=== PATIENT | female | born 1980 | race African-American/Black ===

== ENCOUNTER 2016-11-15 00:28 | Emergency (ER) | payer MEDICAID ==
[~2016-11-15] VITALS: Ht 160 cm; Wt 53.0 kg
[2016-11-15] MEDS ORDERED: TETANUS, DIPHTHERIA, PERTUSSIS VAC/PF 0.5ML (>7YR OLD) IM ONE (04:45)
[2016-11-15 04:54] LABS: CLARITY URINE CLEAR (CLEAR); COLOR URINE YELLOW (YELLOW); GLUCOSE URINE NEGATIVE (NEGATIVE); KETONES URINE NEGATIVE (NEGATIVE); LEUKOCYTE ESTERASE URINE NEGATIVE (NEGATIVE); NITRITE URINE NEGATIVE (NEGATIVE); OCCULT BLOOD URINE NEGATIVE (NEGATIVE); PH URINE 5.5 (4.5-8.0); PROTEIN URINE NEGATIVE (NEGATIVE); SPECIFIC GRAVITY URINE 1.019 (1.005-1.030); UROBILINOGEN URINE 0.2 E.U./dL (0.2-1.0)
[2016-11-15] MEDS ORDERED: LIDOCAINE HCL 1% 20ML VIAL (Pyxis) INJ INFIL ONE (05:15)
[2016-11-15] MEDS ORDERED: CEFTRIAXONE 1 G PREMIX 50 ML IV ONE (05:15)
[2016-11-15 05:33] LABS: BASOPHILS % 0.5 % (0.0-2.0); EOSINOPHILS % 1.3 % (0.0-5.0); HEMATOCRIT. 40.6 % (36.0-48.0); HEMOGLOBIN. 13.5 g/dL (12.0-16.0); LYMPHOCYTES % 38.6 % (20.0-50.0); MEAN CORPUSCULAR HEMOGLOBIN 30.2 pg (28.0-32.0); MEAN CORPUSCULAR VOLUME 90.9 fL (81.0-99.0); MEAN PLATELET VOLUME 8.8 fl (7.4-10.4); MONOCYTES % 8.2 % (2.0-8.0); NEUTROPHILS % 51.4 % (40.0-76.0); PLATELET 309 x1000/uL (130-400); RED BLOOD CELL COUNT 4.47 mill/uL (4.2-5.4); RED CELL DISTRIBUTION WIDTH 13.6 % (11.6-14.6)
[2016-11-15 05:45] VITALS: BP 135/100
[2016-11-15 05:46] LABS: CARBON DIOXIDE 27 mEq/L (21-32); CHLORIDE 106 mEq/L (98-107)
== END 2016-11-15 07:19 | disposition home or self-care (01) ==
LOC: ER 04:49
DX: S91.151A Open bite of right great toe without damage to nail, initial encounter (principal); S41.151A Open bite of right upper arm, initial encounter; K27.9 Peptic ulcer, site unspecified, unspecified as acute or chronic, without hemorrhage or perforation; W50.3XXA Accidental bite by another person, initial encounter; Y93.89 Activity, other specified; Y92.89 Other specified places as the place of occurrence of the external cause; Y99.8 Other external cause status
CPT/HCPCS: 36415; 80053; 81003; 81025; 85025; 87186; 87210; 90471; 90715; 96365; 99284; J0696; Z7610

== ENCOUNTER 2017-07-15 02:44 | Emergency (ER) | payer MEDICAID | END 2017-07-15 02:50 | disposition left against medical advice (07) | LOC: ER 02:44 | DX: J02.9 Acute pharyngitis, unspecified (principal); Z53.21 Procedure and treatment not carried out due to patient leaving prior to being seen by health care provider ==

== ENCOUNTER 2017-08-09 02:38 | Emergency (ER) | payer MEDICAID ==
[~2017-08-09] VITALS: Ht 160 cm; Wt 52.3 kg
[2017-08-09] MEDS ORDERED: IBUPROFEN 600MG TABLET PO ONE (05:30)
[2017-08-09 07:28] VITALS: BP 135/91
== END 2017-08-09 07:34 | disposition home or self-care (01) ==
LOC: ER 02:38
DX: S40.022A Contusion of left upper arm, initial encounter (principal); S40.021A Contusion of right upper arm, initial encounter; M79.1 Myalgia; Y08.89XA Assault by other specified means, initial encounter; R05 Cough; Y93.89 Activity, other specified; Y92.89 Other specified places as the place of occurrence of the external cause; Y99.8 Other external cause status; Z98.51 Tubal ligation status
CPT/HCPCS: 81025; 99283

== ENCOUNTER 2018-02-20 04:27 | Emergency (ER) | payer MEDICAID ==
[~2018-02-20] VITALS: Ht 160 cm; Wt 52.4 kg
[2018-02-20 04:55] VITALS: BP 138/90
== END 2018-02-20 05:50 | disposition left against medical advice (07) ==
LOC: ER 04:27
DX: M79.644 Pain in right finger(s) (principal); Z53.21 Procedure and treatment not carried out due to patient leaving prior to being seen by health care provider

== ENCOUNTER 2018-07-11 23:13 | Emergency (ER) | payer MEDICAID | END 2018-07-12 01:06 | disposition left against medical advice (07) | LOC: ER 23:13 | DX: M54.2 Cervicalgia (principal); Z53.21 Procedure and treatment not carried out due to patient leaving prior to being seen by health care provider ==

== ENCOUNTER 2018-12-16 01:01 | Emergency (ER) | payer MEDICAID ==
[~2018-12-16] VITALS: Ht 160 cm; Wt 51.5 kg
[2018-12-16] MEDS ORDERED: AZITHROMYCIN 500 MG TABLET PO STA (02:54)
[2018-12-16] MEDS ORDERED: CEFTRIAXONE SODIUM 250 MG/VIAL IM ONE (03:00)
[2018-12-16] MEDS ORDERED: ACETAMINOPHEN 325MG TABLET PO ONE (04:30)
[2018-12-16 05:07] VITALS: BP 128/76
[2018-12-18 04:13] LABS: CHLAMYDIA TRACHOMATIS NAA Negative (Negative); NEISSERIA GONORRHOEAE NAA Negative (Negative)
== END 2018-12-16 05:08 | disposition home or self-care (01) ==
LOC: ER 01:01
DX: N76.0 Acute vaginitis (principal); Z98.51 Tubal ligation status
CPT/HCPCS: 87210; 87491; 87591; 96372; 99283; J0696

== ENCOUNTER 2019-09-04 08:41 | Emergency (ER) | payer MEDICAID ==
[~2019-09-04] VITALS: Ht 160 cm; Wt 54.2 kg
[2019-09-04 10:29] LABS: BASOPHILS % 0.6 % (0.0-2.0); EOSINOPHILS % 0.9 % (0.0-5.0); HEMATOCRIT. 46.8 % (36.0-48.0); HEMOGLOBIN. 15.6 g/dL (12.0-16.0); LYMPHOCYTES % 20.5 % (20.0-50.0); MEAN CORPUSCULAR HEMOGLOBIN 31.4 pg (28.0-32.0); MEAN PLATELET VOLUME 8.7 fl (7.4-10.4); MONOCYTES % 8.9 % (2.0-8.0); NEUTROPHILS % 69.1 % (40.0-76.0); PLATELET 391 x1000/uL (130-400); RED BLOOD CELL COUNT 4.98 mill/uL (4.2-5.4); RED CELL DISTRIBUTION WIDTH 13.3 % (11.6-14.6)
[2019-09-04 10:36] LABS: CHLORIDE 108 mEq/L (98-107)
[2019-09-04 10:37] LABS: CLARITY URINE CLEAR (CLEAR); COLOR URINE YELLOW (YELLOW); KETONES URINE NEGATIVE (NEGATIVE); LEUKOCYTE ESTERASE URINE NEGATIVE (NEGATIVE); NITRITE URINE NEGATIVE (NEGATIVE); OCCULT BLOOD URINE 3+ (NEGATIVE); PROTEIN URINE NEGATIVE (NEGATIVE); SPECIFIC GRAVITY URINE 1.025 (1.005-1.030); UROBILINOGEN URINE 0.2 E.U./dL (0.2-1.0)
[2019-09-04 13:36] VITALS: BP 127/88
== END 2019-09-04 13:40 | disposition home or self-care (01) ==
LOC: ER 08:41
DX: N93.9 Abnormal uterine and vaginal bleeding, unspecified (principal); F17.210 Nicotine dependence, cigarettes, uncomplicated; Z98.51 Tubal ligation status
CPT/HCPCS: 36415; 76830; 76856; 80053; 81003; 81025; 84702; 85025; 99284

== ENCOUNTER 2019-09-26 11:14 | Emergency (ER) | payer MEDICAID ==
[~2019-09-26] VITALS: Ht 165.1 cm; Wt 54.0 kg
[2019-09-26 12:06] LABS: CLARITY URINE CLEAR (CLEAR); COLOR URINE YELLOW (YELLOW); KETONES URINE NEGATIVE (NEGATIVE); LEUKOCYTE ESTERASE URINE NEGATIVE (NEGATIVE); NITRITE URINE NEGATIVE (NEGATIVE); OCCULT BLOOD URINE NEGATIVE (NEGATIVE); PROTEIN URINE NEGATIVE (NEGATIVE); SPECIFIC GRAVITY URINE 1.023 (1.005-1.030); UROBILINOGEN URINE 0.2 E.U./dL (0.2-1.0)
[2019-09-26 14:18] VITALS: BP 115/72
== END 2019-09-26 14:39 | disposition home or self-care (01) ==
LOC: ER 11:36
DX: R10.30 Lower abdominal pain, unspecified (principal); M54.5 Low back pain; K59.00 Constipation, unspecified; R11.0 Nausea; F17.200 Nicotine dependence, unspecified, uncomplicated; Z98.51 Tubal ligation status
CPT/HCPCS: 81003; 81025; 99283

== ENCOUNTER 2019-09-27 09:55 | Emergency (ER) | payer MEDICAID ==
[~2019-09-27] VITALS: Ht 160 cm; Wt 58.0 kg
[2019-09-27] MEDS ORDERED: HYDROCODONE/ACETAMINOPHEN 5/325MG TABLET PO STA (10:37)
[2019-09-27] MEDS ORDERED: ONDANSETRON 4MG ODT PO STA (10:37)
[2019-09-27 11:31] LABS: BASOPHILS % 0.6 % (0.0-2.0); EOSINOPHILS % 0.6 % (0.0-5.0); HEMOGLOBIN. 15.4 g/dL (12.0-16.0); LYMPHOCYTES % 22.3 % (20.0-50.0); MEAN CORPUSCULAR HEMOGLOBIN 32.9 pg (28.0-32.0); MEAN CORPUSCULAR VOLUME 92.1 fL (81.0-99.0); MEAN PLATELET VOLUME 8.6 fl (7.4-10.4); MONOCYTES % 7.7 % (2.0-8.0); NEUTROPHILS % 68.8 % (40.0-76.0); PLATELET 341 x1000/uL (130-400); RED BLOOD CELL COUNT 4.67 mill/uL (4.2-5.4); RED CELL DISTRIBUTION WIDTH 12.9 % (11.6-14.6)
[2019-09-27 11:47] LABS: CLARITY URINE CLEAR (CLEAR); COLOR URINE YELLOW (YELLOW); KETONES URINE TRACE (NEGATIVE); LEUKOCYTE ESTERASE URINE NEGATIVE (NEGATIVE); NITRITE URINE NEGATIVE (NEGATIVE); OCCULT BLOOD URINE NEGATIVE (NEGATIVE); PROTEIN URINE NEGATIVE (NEGATIVE); SPECIFIC GRAVITY URINE 1.026 (1.005-1.030)
[2019-09-27 11:59] LABS: CHLORIDE 109 mEq/L (98-107)
[2019-09-27 14:00] VITALS: BP 118/73
[2019-09-27] MEDS ORDERED: IOHEXOL-300 100 ML BOTTLE ONE (14:14)
== END 2019-09-27 14:11 | disposition home or self-care (01) ==
LOC: ER 09:55
DX: D25.9 Leiomyoma of uterus, unspecified (principal); K80.20 Calculus of gallbladder without cholecystitis without obstruction; Z98.51 Tubal ligation status
CPT/HCPCS: 36415; 74177; 76830; 76856; 80053; 81003; 81025; 83690; 84702; 85025; 85610; 99285; Q0162; Q9967

== ENCOUNTER 2019-10-10 16:56 | Emergency (ER) | payer MEDICAID ==
[~2019-10-10] VITALS: Ht 157.5 cm; Wt 49.0 kg
[2019-10-10] MEDS ORDERED: SODIUM CHLORIDE 0.9% 1,000 ML IV ONE (17:45)
[2019-10-10 17:47] LABS: CLARITY URINE CLEAR (CLEAR); COLOR URINE YELLOW (YELLOW); KETONES URINE 1+ (NEGATIVE); LEUKOCYTE ESTERASE URINE NEGATIVE (NEGATIVE); NITRITE URINE NEGATIVE (NEGATIVE); OCCULT BLOOD URINE NEGATIVE (NEGATIVE); PROTEIN URINE NEGATIVE (NEGATIVE); UROBILINOGEN URINE 0.2 E.U./dL (0.2-1.0)
[2019-10-10] MEDS ORDERED: AZITHROMYCIN 500 MG TABLET PO ONE (18:15)
[2019-10-10] MEDS ORDERED: HYDROCODONE/ACETAMINOPHEN 5/325MG TABLET PO ONE (18:15)
[2019-10-10] MEDS ORDERED: CEFTRIAXONE SODIUM 250 MG/VIAL IM ONE (18:15)
[2019-10-10] MEDS ORDERED: KETOROLAC 30MG/ML VIAL IV ONE (18:15)
[2019-10-10 18:17] LABS: CHLORIDE 103 mEq/L (98-107)
[2019-10-10 18:23] LABS: BASOPHILS % 0.2 % (0.0-2.0); EOSINOPHILS % 0.1 % (0.0-5.0); HEMATOCRIT. 45.6 % (36.0-48.0); HEMOGLOBIN. 15.6 g/dL (12.0-16.0); LYMPHOCYTES % 8.6 % (20.0-50.0); MEAN CORPUSCULAR HEMOGLOBIN 31.7 pg (28.0-32.0); MEAN CORPUSCULAR VOLUME 92.8 fL (81.0-99.0); MEAN PLATELET VOLUME 8.9 fl (7.4-10.4); MONOCYTES % 8.1 % (2.0-8.0); PLATELET 383 x1000/uL (130-400); RED BLOOD CELL COUNT 4.92 mill/uL (4.2-5.4); RED CELL DISTRIBUTION WIDTH 12.8 % (11.6-14.6)
[2019-10-10 18:26] LABS: PROTHROMBIN TIME 10.6 sec (9.6-11.0)
[2019-10-10 18:34] LABS: HCG SCREEN NEGATIVE
[2019-10-10 21:16] VITALS: BP 127/79
== END 2019-10-10 21:17 | disposition home or self-care (01) ==
LOC: ER 16:56
DX: R10.2 Pelvic and perineal pain (principal)
CPT/HCPCS: 36415; 80053; 81003; 81025; 83690; 84703; 85025; 85610; 96372; 96374; 99283; J0696; J1885; J7030

== ENCOUNTER 2020-03-27 09:45 | Emergency (ER) | payer MEDICAID ==
[~2020-03-27] VITALS: Ht 160 cm; Wt 57.0 kg
[2020-03-27] MEDS ORDERED: ACETAMINOPHEN 325MG TABLET PO STA (11:15)
[2020-03-27] MEDS ORDERED: AMLODIPINE 5MG TABLET PO ONE (11:45)
[2020-03-27 11:57] LABS: BASOPHILS % 0.7 % (0.0-2.0); EOSINOPHILS % 1.2 % (0.0-5.0); HEMATOCRIT. 44.2 % (36.0-48.0); HEMOGLOBIN. 14.9 g/dL (12.0-16.0); LYMPHOCYTES % 24.1 % (20.0-50.0); MEAN CORPUSCULAR HEMOGLOBIN 31.1 pg (28.0-32.0); MEAN CORPUSCULAR VOLUME 91.9 fL (81.0-99.0); MEAN PLATELET VOLUME 9.3 fl (7.4-10.4); MONOCYTES % 10.4 % (2.0-8.0); NEUTROPHILS % 63.6 % (40.0-76.0); PLATELET 337 x1000/uL (130-400); RED BLOOD CELL COUNT 4.81 mill/uL (4.2-5.4); RED CELL DISTRIBUTION WIDTH 13.2 % (11.6-14.6)
[2020-03-27 12:04] LABS: CHLORIDE 106 mEq/L (98-107)
[2020-03-27 12:14] LABS: B-HCG QUANTITATIVE < 1 mIU/mL (<3)
[2020-03-27 12:54] LABS: CLARITY URINE CLEAR (CLEAR); COLOR URINE YELLOW (YELLOW); KETONES URINE NEGATIVE (NEGATIVE); LEUKOCYTE ESTERASE URINE NEGATIVE (NEGATIVE); NITRITE URINE NEGATIVE (NEGATIVE); OCCULT BLOOD URINE NEGATIVE (NEGATIVE); PROTEIN URINE NEGATIVE (NEGATIVE); SPECIFIC GRAVITY URINE 1.014 (1.005-1.030)
[2020-03-27 14:00] VITALS: BP 130/93
== END 2020-03-27 14:00 | disposition home or self-care (01) ==
LOC: ER 09:45
DX: D25.9 Leiomyoma of uterus, unspecified (principal); Z88.6 Allergy status to analgesic agent
CPT/HCPCS: 36415; 76830; 76856; 80053; 81003; 81025; 84702; 85025; 93005; 99285

== ENCOUNTER 2020-03-28 18:11 | Emergency (ER) | payer MEDICAID ==
[~2020-03-28] VITALS: Ht 160 cm; Wt 64.0 kg
[2020-03-28 23:04] LABS: BASOPHILS % 1.2 % (0.0-2.0); EOSINOPHILS % 1.8 % (0.0-5.0); HEMATOCRIT. 49.5 % (36.0-48.0); HEMOGLOBIN. 16.4 g/dL (12.0-16.0); LYMPHOCYTES % 42.4 % (20.0-50.0); MEAN CORPUSCULAR HEMOGLOBIN 30.6 pg (28.0-32.0); MEAN CORPUSCULAR VOLUME 92.4 fL (81.0-99.0); NEUTROPHILS % 46.6 % (40.0-76.0); PLATELET 415 x1000/uL (130-400); RED BLOOD CELL COUNT 5.36 mill/uL (4.2-5.4)
[2020-03-28 23:11] LABS: CHLORIDE 103 mEq/L (98-107)
[2020-03-28 23:12] LABS: PROTHROMBIN TIME 10.1 sec (9.6-11.0)
[2020-03-28 23:13] LABS: HCG SCREEN NEGATIVE
[2020-03-28 23:14] LABS: ETHANOL BLOOD < 10 mg/dL
[2020-03-28 23:30] LABS: CLARITY URINE CLEAR (CLEAR); COLOR URINE YELLOW (YELLOW); KETONES URINE NEGATIVE (NEGATIVE); LEUKOCYTE ESTERASE URINE NEGATIVE (NEGATIVE); NITRITE URINE NEGATIVE (NEGATIVE); OCCULT BLOOD URINE NEGATIVE (NEGATIVE); PH URINE 5.5 (4.5-8.0); PROTEIN URINE NEGATIVE (NEGATIVE); SPECIFIC GRAVITY URINE 1.015 (1.005-1.030)
[2020-03-28 23:44] LABS: *AMPHETAMINES SCREEN URINE NEGATIVE (NEGATIVE); *BARBITURATES SCREEN URINE NEGATIVE (NEGATIVE); *BENZODIAZEPINES SCREEN URINE NEGATIVE (NEGATIVE)
[2020-03-28 23:45] LABS: *COCAINE SCREEN URINE NEGATIVE (NEGATIVE); METHADONE URINE SCREEN NEGATIVE (NEGATIVE); OPIATES URINE SCREEN NEGATIVE (NEGATIVE); PHENCYCLIDINE URINE SCREEN NEGATIVE (NEGATIVE)
[2020-03-28 23:49] LABS: CANNABINOID URINE SCREEN PRESUMTIVE POSITIVE (NEGATIVE)
[2020-03-29] MEDS ORDERED: TRAMADOL 50MG TABLET PO ONE (00:30)
[2020-03-29 00:34] VITALS: BP 148/97
== END 2020-03-29 00:44 | disposition home or self-care (01) ==
LOC: ER 18:11
DX: M85.08 Fibrous dysplasia (monostotic), other site (principal); F91.8 Other conduct disorders; R51.9 Headache, unspecified; I10 Essential (primary) hypertension; F12.10 Cannabis abuse, uncomplicated; Z98.51 Tubal ligation status
CPT/HCPCS: 36415; 80053; 80305; 80320; 81003; 81025; 84703; 85025; 93005; 99285; G0480

== ENCOUNTER 2020-05-21 16:15 | Emergency (ER) | payer MEDICAID ==
[~2020-05-21] VITALS: Ht 157.5 cm; Wt 59.0 kg
[2020-05-21 16:47] LABS: CLARITY URINE CLEAR (CLEAR); COLOR URINE YELLOW (YELLOW); KETONES URINE NEGATIVE (NEGATIVE); LEUKOCYTE ESTERASE URINE NEGATIVE (NEGATIVE); NITRITE URINE NEGATIVE (NEGATIVE); OCCULT BLOOD URINE NEGATIVE (NEGATIVE); PH URINE 5.5 (4.5-8.0); PROTEIN URINE NEGATIVE (NEGATIVE); SPECIFIC GRAVITY URINE 1.009 (1.005-1.030)
[2020-05-21 17:04] LABS: *AMPHETAMINES SCREEN URINE NEGATIVE (NEGATIVE); *BARBITURATES SCREEN URINE NEGATIVE (NEGATIVE); *BENZODIAZEPINES SCREEN URINE NEGATIVE (NEGATIVE); *COCAINE SCREEN URINE NEGATIVE (NEGATIVE)
[2020-05-21 17:05] LABS: METHADONE URINE SCREEN NEGATIVE (NEGATIVE); OPIATES URINE SCREEN NEGATIVE (NEGATIVE); PHENCYCLIDINE URINE SCREEN NEGATIVE (NEGATIVE)
[2020-05-21 17:10] LABS: CANNABINOID URINE SCREEN PRESUMTIVE POSITIVE (NEGATIVE)
[2020-05-21 19:05] VITALS: BP 146/109
== END 2020-05-21 19:07 | disposition home or self-care (01) ==
LOC: ER 16:15
DX: D25.9 Leiomyoma of uterus, unspecified (principal); I10 Essential (primary) hypertension; Z98.51 Tubal ligation status; Z88.8 Allergy status to other drugs, medicaments and biological substances
CPT/HCPCS: 80305; 81003; 81025; 99283

== ENCOUNTER 2021-05-16 15:26 | Emergency (ER) | payer MEDICAID ==
[~2021-05-16] VITALS: Ht 160 cm; Wt 58.8 kg
[2021-05-16] MEDS ORDERED: HYDR25TA MT (17:49)
[2021-05-16] MEDS ORDERED: HYDROCHLOROTHIAZIDE 25MG TABLET PO ONE (18:00)
[2021-05-16 21:06] VITALS: BP 168/119
== END 2021-05-16 21:22 | disposition home or self-care (01) ==
LOC: ER 15:26
DX: I10 Essential (primary) hypertension (principal); F45.8 Other somatoform disorders
CPT/HCPCS: 99281

== ENCOUNTER 2021-06-15 10:35 | Observation (INO) | payer MEDICAID ==
[~2021-06-15 10:35] MED LIST: HYDR25TA MT
[2021-06-15] MEDS ORDERED: PHEN51CR24 TP (15:39)
[2021-06-15] MEDS ORDERED: POLY17PO3 MT (15:39)
== END 2021-06-15 11:25 | disposition home or self-care (01) ==
LOC: 8 EST LDRP 10:35
PROVIDERS: ADMIT Obstetrics & Gynecology; ATTEND Obstetrics & Gynecology
DX: O26.893 Other specified pregnancy related conditions, third trimester (principal); N89.8 Other specified noninflammatory disorders of vagina; O62.9 Abnormality of forces of labor, unspecified; Z79.899 Other long term (current) drug therapy; Z3A.39 39 weeks gestation of pregnancy
CPT/HCPCS: 76856; G0378; 59025

== ENCOUNTER 2021-06-15 13:23 | Emergency (ER) | payer MEDICAID ==
[~2021-06-15] VITALS: Ht 170.2 cm; Wt 60.0 kg
[2021-06-15 13:27] VITALS: BP 150/97
[2021-06-15 14:25] LABS: CLARITY URINE CLEAR (CLEAR); COLOR URINE YELLOW (YELLOW); KETONES URINE NEGATIVE (NEGATIVE); LEUKOCYTE ESTERASE URINE NEGATIVE (NEGATIVE); NITRITE URINE NEGATIVE (NEGATIVE); OCCULT BLOOD URINE NEGATIVE (NEGATIVE); PROTEIN URINE NEGATIVE (NEGATIVE); SPECIFIC GRAVITY URINE 1.024 (1.005-1.030)
[2021-06-15 14:42] LABS: BASOPHILS % 0.6 % (0.0-2.0); EOSINOPHILS % 1.3 % (0.0-5.0); HEMATOCRIT. 44.3 % (36.0-48.0); HEMOGLOBIN. 14.6 g/dL (12.0-16.0); LYMPHOCYTES % 30.8 % (20.0-50.0); MEAN CORPUSCULAR VOLUME 91.1 fL (81.0-99.0); MEAN PLATELET VOLUME 8.9 fl (7.4-10.4); NEUTROPHILS % 59.3 % (40.0-76.0); PLATELET 362 x1000/uL (130-400); RED BLOOD CELL COUNT 4.86 mill/uL (4.2-5.4); RED CELL DISTRIBUTION WIDTH 13.6 % (11.6-14.6)
[2021-06-15 14:46] LABS: CHLORIDE 107 mEq/L (98-107)
[2021-06-15 14:52] LABS: ETHANOL BLOOD < 10 mg/dL
[2021-06-15 14:56] LABS: B-HCG QUANTITATIVE < 1 mIU/mL (<3)
[2021-06-15 15:00] LABS: *AMPHETAMINES SCREEN URINE NEGATIVE (NEGATIVE); *BENZODIAZEPINES SCREEN URINE NEGATIVE (NEGATIVE); METHADONE URINE SCREEN NEGATIVE (NEGATIVE); OPIATES URINE SCREEN NEGATIVE (NEGATIVE)
[2021-06-15 15:01] LABS: *BARBITURATES SCREEN URINE NEGATIVE (NEGATIVE); *COCAINE SCREEN URINE NEGATIVE (NEGATIVE); PHENCYCLIDINE URINE SCREEN NEGATIVE (NEGATIVE)
[2021-06-15 15:15] LABS: CANNABINOID URINE SCREEN PRESUMTIVE POSITIVE (NEGATIVE)
[2021-06-15] MEDS ORDERED: POLY17PO3 MT (15:39)
[2021-06-15] MEDS ORDERED: PHEN51CR24 TP (15:39)
== END 2021-06-15 15:42 | disposition home or self-care (01) ==
LOC: ER 13:23
DX: K64.4 Residual hemorrhoidal skin tags (principal); I10 Essential (primary) hypertension; Z88.6 Allergy status to analgesic agent; Z98.51 Tubal ligation status
CPT/HCPCS: 36415; 80053; 80305; 80307; 80320; 80329; 81003; 84702; 85025; 86850; 86900; 99283; G0480

== ENCOUNTER 2021-12-19 07:49 | Emergency (ER) | payer MEDICAID ==
[~2021-12-19] VITALS: Ht 162.6 cm; Wt 60.0 kg
[~2021-12-19 07:49] MED LIST changes: +PHEN51CR24 TP; +POLY17PO3 MT
[2021-12-19] MEDS ORDERED: VISCOUS LIDOCAINE 2% 15 ML UDC MM NR (10:54)
[2021-12-19 12:00] LABS: CLARITY URINE CLEAR (CLEAR); COLOR URINE YELLOW (YELLOW); KETONES URINE 1+ (NEGATIVE); LEUKOCYTE ESTERASE URINE NEGATIVE (NEGATIVE); NITRITE URINE NEGATIVE (NEGATIVE); OCCULT BLOOD URINE NEGATIVE (NEGATIVE); PH URINE 5.5 (4.5-8.0); PROTEIN URINE NEGATIVE (NEGATIVE); SPECIFIC GRAVITY URINE 1.021 (1.005-1.030)
[2021-12-19] MEDS ORDERED: IBUP-2029 MT (12:35)
[2021-12-19] MEDS ORDERED: XLV MT (12:35)
[2021-12-19 13:42] VITALS: BP 139/76
== END 2021-12-19 13:44 | disposition home or self-care (01) ==
LOC: ER 07:49
DX: D25.9 Leiomyoma of uterus, unspecified (principal); J02.9 Acute pharyngitis, unspecified; I10 Essential (primary) hypertension; Z88.6 Allergy status to analgesic agent; Z98.51 Tubal ligation status
CPT/HCPCS: 36415; 76856; 81003; 81025; 84702; 99284

== ENCOUNTER 2022-01-21 23:52 | Emergency (ER) | payer MEDICAID ==
[~2022-01-21] VITALS: Ht 172.7 cm; Wt 77.0 kg
[~2022-01-21 23:52] MED LIST changes: +IBUP-2029 MT; +XLV MT
[2022-01-21 23:58] VITALS: BP 147/90
== END 2022-01-22 04:53 | disposition left against medical advice (07) ==
LOC: ER 23:52
DX: Z53.21 Procedure and treatment not carried out due to patient leaving prior to being seen by health care provider (principal)

== ENCOUNTER 2023-01-03 01:12 | Emergency (ER) | payer MEDICAID ==
[~2023-01-03] VITALS: Ht 160 cm; Wt 60.0 kg
[2023-01-03 01:15] VITALS: BP 148/90; PULSE 110; RESP 16; TEMP 98.4; O2SAT 97
[2023-01-03] MEDS ORDERED: BENZ100C86 MT (05:10)
== END 2023-01-03 02:15 | disposition home or self-care (01) ==
LOC: ER 01:12
DX: Z00.00 Encounter for general adult medical examination without abnormal findings (principal)
CPT/HCPCS: 99283

== ENCOUNTER 2023-01-03 02:46 | Emergency (ER) | payer MEDICAID ==
[~2023-01-03] VITALS: Ht 160 cm; Wt 57.5 kg
[2023-01-03 02:56] VITALS: BP 124/84; PULSE 74; RESP 17; TEMP 98.3; O2SAT 100
[2023-01-03] MEDS ORDERED: BENZ100C86 MT (05:10)
== END 2023-01-03 05:37 | disposition home or self-care (01) ==
LOC: ER 02:46
DX: R05.9 Cough, unspecified (principal); F12.10 Cannabis abuse, uncomplicated; I10 Essential (primary) hypertension; Z98.51 Tubal ligation status
CPT/HCPCS: 99281; 99283

== ENCOUNTER 2023-02-16 12:25 | Emergency (ER) | payer MEDICAID ==
[~2023-02-16] VITALS: Ht 167.6 cm; Wt 59.0 kg
[~2023-02-16 12:25] MED LIST changes: +BENZ100C86 MT
[2023-02-16 12:49] VITALS: O2SAT 100
[2023-02-16] MEDS ORDERED: COLC0.6C3 PO (14:46)
[2023-02-16] MEDS ORDERED: VALA500T55 MT (14:46)
[2023-02-16 15:06] VITALS: BP 124/68; PULSE 67; RESP 18; TEMP 98.3
[2023-02-16] MEDS ORDERED: ACET-2708 MT (16:08)
== END 2023-02-16 15:11 | disposition home or self-care (01) ==
LOC: ER 12:32
DX: K13.79 Other lesions of oral mucosa (principal); J02.9 Acute pharyngitis, unspecified; I10 Essential (primary) hypertension; F12.10 Cannabis abuse, uncomplicated
CPT/HCPCS: 81025; 87070; 87430; 99283

== ENCOUNTER 2023-09-21 08:35 | Emergency (ER) | payer MEDICAID ==
[~2023-09-21] VITALS: Ht 160 cm; Wt 60.0 kg
[~2023-09-21 08:35] MED LIST changes: +ACET-2708 MT; +COLC0.6C3 PO; +VALA500T55 MT
[2023-09-21 08:42] VITALS: BP 150/82; PULSE 92; TEMP 98.2; O2SAT 100
[2023-09-21] MEDS: DEXAMETHASONE 4MG/ML 1ML VIAL IV SCH (09:25)
[2023-09-21 11:10] VITALS: RESP 16
[2023-09-21] MEDS ORDERED: DOXY100C5 MT (11:21)
[2023-09-21] MEDS: CEFTRIAXONE SODIUM 500MG VIAL IM ONE (11:32)
== END 2023-09-21 15:21 | disposition home or self-care (01) ==
LOC: ER 08:35
DX: J02.9 Acute pharyngitis, unspecified (principal); I10 Essential (primary) hypertension; Z98.51 Tubal ligation status
CPT/HCPCS: 81025; 87430; 87070; 96374; 99283; J1100; Z7610 ×3

== ENCOUNTER 2023-11-23 04:56 | Emergency (ER) | payer MEDICAID ==
[~2023-11-23] VITALS: Ht 167.6 cm; Wt 76.0 kg
[~2023-11-23 04:56] MED LIST changes: +DOXY100C5 MT
[2023-11-23 04:59] VITALS: O2SAT 99
[2023-11-23 05:34] LABS: BASOPHILS % 0.8 % (0.0-2.0); DIFFERENTIAL COMMENT 0; EOSINOPHILS % 2.5 % (0.0-5.0); HEMOGLOBIN. 13.7 g/dL (12.0-16.0); LYMPHOCYTES % 37.8 % (20.0-50.0); MEAN CORPUSCULAR HEMOGLOBIN 30.9 pg (28.0-32.0); MEAN CORPUSCULAR HGB CONC 33.3 g/dL (31.0-37.0); MEAN CORPUSCULAR VOLUME 92.8 fL (81.0-99.0); MEAN PLATELET VOLUME 8.7 fl (7.4-10.4); MONOCYTES % 8.8 % (2.0-8.0); NEUTROPHILS % 50.1 % (40.0-76.0); PLATELET 384 x1000/uL (130-400); RED BLOOD CELL COUNT 4.42 mill/uL (4.2-5.4); RED CELL DISTRIBUTION WIDTH 13.8 % (11.6-14.6); WHITE BLOOD COUNT 10.3 x1000/uL (4.5-11.0)
[2023-11-23 05:39] LABS: CARBON DIOXIDE 27 mEq/L (21-32); CHLORIDE 107 mEq/L (98-107); POTASSIUM 4.1 mEq/L (3.5-5.1); SODIUM 136 mEq/L (136-145)
[2023-11-23 05:40] LABS: CALCIUM 9.3 mg/dL (8.7-10.4)
[2023-11-23 05:45] LABS: CREATININE 0.9 mg/dL (0.6-1.0); GLUCOSE 87 mg/dL (70-105); UREA NITROGEN BLOOD 8 mg/dL (9-23)
[2023-11-23 05:46] LABS: ALANINE AMINOTRANSFERASE 7 IU/L (10-49)
[2023-11-23 05:47] LABS: ALBUMIN 4.6 g/dL (3.2-4.8); ASPARTATE AMINOTRANSFERASE 14 IU/L (<34); BILIRUBIN DIRECT 0.2 mg/dL (<=3.0); BILIRUBIN TOTAL 0.6 mg/dL (0.1-1.0); PROTEIN TOTAL 7.1 g/dL (6.0-8.3)
[2023-11-23 06:03] LABS: INR 0.9; PROTHROMBIN TIME 10.3 sec (9.6-11.0)
[2023-11-23 06:24] LABS: CLARITY URINE CLEAR (CLEAR); COLOR URINE YELLOW (YELLOW); GLUCOSE URINE NEGATIVE (NEGATIVE); KETONES URINE NEGATIVE (NEGATIVE); LEUKOCYTE ESTERASE URINE NEGATIVE (NEGATIVE); NITRITE URINE NEGATIVE (NEGATIVE); OCCULT BLOOD URINE NEGATIVE (NEGATIVE); PH URINE 5.5 (4.5-8.0); PROTEIN URINE NEGATIVE (NEGATIVE); SPECIFIC GRAVITY URINE 1.018 (1.005-1.030); UROBILINOGEN URINE 0.2 E.U./dL (0.2-1.0)
[2023-11-23 06:44] LABS: HCG SCREEN NEGATIVE
[2023-11-23 08:15] VITALS: BP 121/75; PULSE 84; RESP 16; TEMP 98.2
[2023-11-23] MEDS ORDERED: IOHEXOL-300 100 ML BOTTLE ONE (10:55)
== END 2023-11-23 09:00 | disposition home or self-care (01) ==
LOC: ER 04:56
DX: R10.30 Lower abdominal pain, unspecified (principal); I10 Essential (primary) hypertension; F12.90 Cannabis use, unspecified, uncomplicated; Z98.51 Tubal ligation status
CPT/HCPCS: 80076; 80048; 81003; 84703; 83690; 85025; 85610; 86850; 86900; 86901; 36415; 74177; 99285; Q9967; Z7610 ×3

== ENCOUNTER 2023-12-27 17:46 | Emergency (ER) | payer MEDICAID ==
[~2023-12-27] VITALS: Ht 160 cm; Wt 61.0 kg
[2023-12-27 17:52] VITALS: BP 128/87; PULSE 70; RESP 18; TEMP 98.6; O2SAT 99
[2023-12-27] MEDS ORDERED: IBUP-2028 PO (18:20)
[2023-12-27] MEDS ORDERED: LIDO5JEL8 MM (18:28)
== END 2023-12-27 18:58 | disposition home or self-care (01) ==
LOC: ER 18:01
DX: K12.0 Recurrent oral aphthae (principal); F12.10 Cannabis abuse, uncomplicated; Z79.899 Other long term (current) drug therapy
CPT/HCPCS: 99283

== ENCOUNTER 2024-03-22 06:44 | Emergency (ER) | payer MEDICAID ==
[~2024-03-22] VITALS: Ht 160 cm; Wt 64.3 kg
[~2024-03-22 06:44] MED LIST changes: +IBUP-2028 PO; +LIDO5JEL8 MM
[2024-03-22 06:53] VITALS: O2SAT 99
[2024-03-22] MEDS: TETRACAINE 0.5% OPHTH DROPS 4ML RIGHTEYE ONE (08:02)
[2024-03-22] MEDS ORDERED: ERYT1OIN6 RIGHTEYE (09:02)
[2024-03-22 09:08] VITALS: BP 125/67; PULSE 89; RESP 16; TEMP 36.66960; O2SAT 99
== END 2024-03-22 09:22 | disposition home or self-care (01) ==
LOC: ER 06:44
DX: H10.89 Other conjunctivitis (principal); Z79.899 Other long term (current) drug therapy
CPT/HCPCS: 81025; 99283

== ENCOUNTER 2024-04-09 17:58 | Emergency (ER) | payer MEDICAID ==
[~2024-04-09] VITALS: Ht 160 cm; Wt 59.0 kg
[~2024-04-09 17:58] MED LIST changes: +ERYT1OIN6 RIGHTEYE
[2024-04-09 18:03] VITALS: O2SAT 97
[2024-04-09 18:33] LABS: CLARITY URINE CLEAR (CLEAR); COLOR URINE YELLOW (YELLOW); GLUCOSE URINE NEGATIVE (NEGATIVE); KETONES URINE NEGATIVE (NEGATIVE); LEUKOCYTE ESTERASE URINE TRACE (NEGATIVE); NITRITE URINE NEGATIVE (NEGATIVE); OCCULT BLOOD URINE NEGATIVE (NEGATIVE); PH URINE 5.5 (4.5-8.0); PROTEIN URINE NEGATIVE (NEGATIVE); SPECIFIC GRAVITY URINE 1.026 (1.005-1.030); UROBILINOGEN URINE 0.2 E.U./dL (0.2-1.0)
[2024-04-09 18:43] LABS: BASOPHILS % 0.6 % (0.0-2.0); EOSINOPHILS % 1.3 % (0.0-5.0); HEMATOCRIT. 38.3 % (36.0-48.0); HEMOGLOBIN. 12.8 g/dL (12.0-16.0); LYMPHOCYTES % 29.8 % (20.0-50.0); MEAN CORPUSCULAR HEMOGLOBIN 30.7 pg (28.0-32.0); MEAN CORPUSCULAR HGB CONC 33.3 g/dL (31.0-37.0); MEAN CORPUSCULAR VOLUME 92.2 fL (81.0-99.0); MONOCYTES % 8.2 % (2.0-8.0); NEUTROPHILS % 60.1 % (40.0-76.0); PLATELET 459 x1000/uL (130-400); RED BLOOD CELL COUNT 4.16 mill/uL (4.2-5.4); RED CELL DISTRIBUTION WIDTH 13.9 % (11.6-14.6); WHITE BLOOD COUNT 9.7 x1000/uL (4.5-11.0)
[2024-04-09 18:51] LABS: CARBON DIOXIDE 27 mEq/L (21-32); CHLORIDE 109 mEq/L (98-107); POTASSIUM 3.7 mEq/L (3.5-5.1); SODIUM 140 mEq/L (136-145)
[2024-04-09 18:52] LABS: CALCIUM 9.2 mg/dL (8.7-10.4)
[2024-04-09 18:57] LABS: CREATININE 0.9 mg/dL (0.6-1.0); GLUCOSE 85 mg/dL (70-105); UREA NITROGEN BLOOD 8 mg/dL (9-23)
[2024-04-09 19:43] LABS: SQUAMOUS EPITHELIAL CELL URINE 1+ /lpf (RARE/1+)
[2024-04-09 19:44] LABS: BACTERIA URINE TRACE; RBC URINE 0-2 /hpf (0-2); WBC URINE 0-2 /hpf (0-2); YEAST URINE NONE SEEN
[2024-04-09] MEDS: CEFTRIAXONE SODIUM 500MG VIAL IM ONE (19:50)
[2024-04-09] MEDS ORDERED: NAPR-1176 MT (19:52)
[2024-04-09 20:10] VITALS: BP 139/89; PULSE 77; RESP 16; TEMP 37.00296; O2SAT 100
[2024-04-12 19:06] LABS: CHLAMYDIA TRACHOMATIS NAA Negative (Negative); NEISSERIA GONORRHOEAE NAA Negative (Negative)
== END 2024-04-09 20:11 | disposition home or self-care (01) ==
LOC: ER 17:58
DX: R10.2 Pelvic and perineal pain (principal); D25.9 Leiomyoma of uterus, unspecified; I10 Essential (primary) hypertension; F12.10 Cannabis abuse, uncomplicated; Z79.899 Other long term (current) drug therapy; Z79.624 Long term (current) use of inhibitors of nucleotide synthesis; Z79.1 Long term (current) use of non-steroidal anti-inflammatories (NSAID)
CPT/HCPCS: 87491; 87591; 80048; 81003; 81025; 85025; 87210; 36415; 76830; 76856; 96372; 99285; J0696; Z7610